=== PATIENT | male | born 1965 | race Caucasian/White ===

== ENCOUNTER 2017-03-24 07:42 | Outpatient (CLI) | payer OTHER ==
[2017-03-24 08:26] LABS: eGFR (African) > 60; eGFR (Non-African) > 60
== END 2017-03-24 07:43 ==
LOC: LAB 07:42
PROVIDERS: ATTEND Family Medicine
DX: I10 Essential (primary) hypertension (principal)
CPT/HCPCS: 36415; 80053; 80061